=== PATIENT | male | born 1965 | race African-American/Black ===

== ENCOUNTER 2018-08-19 22:51 | Inpatient (IN) ==
[2018-08-19 23:29] LABS: Baso % (Auto) 0.5 % (0.0-2.0); Eos % (Auto) 0.2 % (0.0-4.0); Lymph # (Auto) 3.4 th/mm3 (1.0-4.8); Lymph % (Auto) 36.8 % (9.0-44.0); Mean Corpuscular HGB Conc 31.9 % (32.0-36.0); Mean Corpuscular Hemoglobin 28.6 pg (27.0-34.0); Mean Corpuscular Volume 89.6 fL (80.0-100.0); Mean Platelet Volume 8.1 fL (7.0-11.0); Mono % (Auto) 10.8 % (0.0-8.0); Neut # (Auto) 4.8 th/mm3 (1.8-7.7); Neut % (Auto) 51.7 % (16.0-70.0); Platelet Count 303 th/mm3 (150-450); Red Blood Count 4.91 mil/mm3 (4.50-5.90); Red Cell Distribution Width 13.7 % (11.6-17.2); White Blood Count 9.2 th/mm3 (4.0-11.0)
[2018-08-19 23:38] LABS: Activated Partial Thrombo Time 24.4 sec (24.3-30.1); Prothrombin Time 10.5 sec (9.8-11.6)
--- NOTE | 2018-08-19 23:42 | XR ---
EXAM DATE: 08/19/2018 11:13 PM EDT AGE/SEX: 52 years / Male INDICATIONS: Cough. CLINICAL DATA: This is the patient's initial encounter. Patient reports that signs and symptoms have been present for 1 day and indicates a pain score of 0/10. MEDICAL/SURGICAL HISTORY: None. None. COMPARISON: No prior exams available for comparison. FINDINGS: The heart size is normal. There is some questionable minimal increased density at the medial right ba se. The left lung appears clear. No effusion is seen. CONCLUSION: Possible minimal consolidation or atelectasis at the medial right base. Electronically signed by: Yuriy Negro MD 08/19/2018 11:40 PM EDT
[2018-08-19 23:54] LABS: Alanine Aminotransferase 37 U/L (12-78); Albumin 4.2 g/dL (3.4-5.0); Anion Gap 24 meq/L (5-15); Aspartate Aminotransferase 27 U/L (15-37); Blood Urea Nitrogen 8 mg/dL (7-18); Calcium 8.8 mg/dL (8.5-10.1); Carbon Dioxide 14.5 meq/L (21.0-32.0); Chloride 102 meq/L (98-107); Glomerular Filtration Rate 47 mL/min (>89); Glucose,Random 234 mg/dL (74-106); Potassium 3.1 meq/L (3.5-5.1); Sodium 140 meq/L (136-145)
[2018-08-20 00:02] LABS: Alkaline Phosphatase 80 U/L (45-117); Creatine Kinase 239 U/L (39-308); Total Protein 8.7 g/dL (6.4-8.2); Troponin I 0.02 ng/mL (0.02-0.05)
--- NOTE | 2018-08-20 00:19 | CT ---
EXAM DATE: 08/19/2018 11:16 PM EDT AGE/SEX: 52 years / Male INDICATIONS: Possible overdose. Altered mental status. CLINICAL DATA: This is the patient's initial encounter. Patient reports that signs and symptoms have been present for 1 day and indicates a pain score of 0/10. MEDICAL/SURGICAL HISTORY: . Unobtainable. . Unobtainable. RADIATION DOSE: 40.57 CTDI (mGy) COMPARISON: No prior exams available for comparison. TECHNIQUE: CT of the head without contrast. Using automated exposure control and adjustment of the mA and/or kV according to patient size, radiation dose was kept as low as reasonably achievable to ob tain optimal diagnostic quality images. DICOM format image data is available electronically for revi ew and comparison. FINDINGS: Cerebrum: The ventricles are normal for age. No evidence of midline shift, mass lesion, hemorrhage or acute infarction. No extraaxial fluid collections are seen. Posterior Fossa: The cerebellum and brainstem are intact. The 4th ventricle is midline. The cerebe llopontine angle is unremarkable. Extracranial: The visualized portion of the orbits is intact. Skull: The calvaria is intact. No evidence of skull fracture. CONCLUSION: Negative noncontrast head CT. . Electronically signed by: Yuriy Negro MD 08/20/2018 12:18 AM EDT
--- NOTE | 2018-08-20 01:30 | ED ---
HPI General Chief Complaint: Medical Clearance Stated Complaint: Medical Clearance Time Seen by Provider: 08/19/18 23:12 Source: family (Sister) Mode of arrival: wheelchair Limitations: altered mental status History of Present Illness HPI narrative: 32-year-old male came to the emergency room with history of altered mental status as described by his sister. She is giving the history since patient is not capable of giving any history with his mental status. She says that she last saw him normal at 5 PM. Then about an hour ago she found him very combative, screaming and agitated. He was diaphoretic and was not making much sense. She was concerned that he had done drugs which was causing this since patient has history of polysubstance abuse. She thinks he mostly smokes crack cocaine but will smoke anything. Patient was tachycardic. He seemed to be responding to the commands when his sister spoke to him but nonverbal. He did seem like he was having visual hallucinations. As per the sister he is not on any medications. From what I understand she says has TBI. complaint: Reports altered mental status Onset (ago): unknown Timing confirmed by: family member Severity: severe Consistency of symptoms: getting worse Context: Reports drug abuse Related Data Home Medications Medication Instructions Recorded Confirmed Unable to Obtain Home Meds 08/19/18 08/19/18 Allergies Allergy/AdvReac Type Severity Reaction Status Date / Time No Known Allergies AdvReac Unknown Uncoded 01/24/18 10:46 Review of Systems ROS Unobtainable ROS Unobtainable: unobtainable due to mental condition and unobtainable due to mental status [facility] Medical History Medical History Medical history unknown (Acute) Social History Social History Substance History: Active Abuse Smoking Status: Current every day smoker Tobacco Type: Cigarettes How Often Do You Have a Drink Containing Alcohol: Never Recent Travel in [facility] within the Last 8 Weeks: No Recent Out of Country Travel within the Last 8 Weeks: No Substance Abuse Detail Crack/Cocaine: Substance Use Status: Active Route Used Substance Abuse: Inhalation Immunization History Tetanus Immunization: Unsure Exam Narrative Exam Narrative: GENERAL: Altered mental status, nonverbal, agitated SKIN: Pale and diaphoretic HEAD: Atraumatic. Normocephalic. EYES: Pupils equal and round. No scleral icterus. No injection or drainage. ENT: No nasal bleeding or discharge. Mucous membranes pink and moist. NECK: Trachea midline. No JVD. CARDIOVASCULAR: Regular rate and rhythm. Tachycardia. No murmur appreciated. RESPIRATORY: No accessory muscle use. Clear to auscultation. Breath sounds equal bilaterally. GASTROINTESTINAL: Abdomen soft, non-tender, nondistended. Hepatic and splenic margins not palpable. MUSCULOSKELETAL: No obvious deformities. No clubbing. No cyanosis. No edema. NEUROLOGICAL: GCS of 10 PSYCHIATRIC: Agitated, poor insight and judgment Course Initial Documented Vital Signs Temperature 98.3 F 08/19/18 23:08 Pulse Rate 115 H 08/19/18 23:08 Respiratory Rate 20 08/19/18 23:08 Blood Pressure 153/87 H 08/19/18 23:08 Pulse Oximetry 100 08/19/18 23:08 Last Documented Vital Signs Temperature 98.3 F 08/19/18 23:08 Pulse Rate 84 08/20/18 01:34 Respiratory Rate 20 08/20/18 01:34 Blood Pressure 150/74 H 08/20/18 01:34 Pulse Oximetry 98 08/20/18 01:34 Medical Decision Making MDM Narrative Medical decision making narrative: 1:39 AM patient was given 2 mg of Ativan which seemed to calm him down. This has brought his heart rate down and the diaphoresis has improved. Blood test results are back and within acceptable limit. Head CT and chest x-ray are negative as read by the radiologist. Patient was given a liter of IV fluid bolus. He just gave a urine sample and I am awaiting for the drug screen. In my opinion this is toxicology related. I will observe the patient until the morning and he will be discharged once he is sober. A repeat EKG and troponin will be obtained in 3-4 hours from the first 1. 2:30 AM repeat troponin was abnormally high. I decided to admit the patient. He was given 4 baby aspirins. Urine drug screen is positive for cocaine and cannabis. The non-STEMI is most probably related to cocaine. Medical Screen Exam Complete: Yes Emergency Medical Condition: Yes Lab Data Result diagrams: 08/19/18 23:20 08/19/18 23:20 Lab Results 08/19/18 08/19/18 08/19/18 Range/Units 23:20 23:20 23:20 WBC 9.2 (4.0-11.0) th/mm3 RBC 4.91 (4.50-5.90) mil/mm3 Hgb 14.0 (13.0-17.0) gm/dL Hct 44.0 (39.0-51.0) % MCV 89.6 (80.0-100.0) fL MCH 28.6 (27.0-34.0) pg MCHC 31.9 L (32.0-36.0) % RDW 13.7 (11.6-17.2) % Plt Count 303 (150-450) th/mm3 MPV 8.1 (7.0-11.0) fL Neut % (Auto) 51.7 (16.0-70.0) % Lymph % (Auto) 36.8 (9.0-44.0) % [place] % (Auto) 10.8 H (0.0-8.0) % Eos % (Auto) 0.2 (0.0-4.0) % Baso % (Auto) 0.5 (0.0-2.0) % Neut # (Auto) 4.8 (1.8-7.7) th/mm3 Lymph # (Auto) 3.4 (1.0-4.8) th/mm3 [place] # (Auto) 1.0 H (0.0-0.9) th/mm3 Eos # (Auto) 0.0 (0.0-0.4) th/mm3 Baso # (Auto) 0.0 (0.0-0.2) th/mm3 WBC Differential . Differential Comment Auto diff final PT 10.5 (9.8-11.6) sec INR 1.0 Ratio APTT 24.4 (24.3-30.1) sec Sodium 140 (136-145) meq/L Potassium 3.1 L (3.5-5.1) meq/L Chloride 102 (98-107) meq/L Carbon Dioxide 14.5 L (21.0-32.0) meq/L Anion Gap 24 H (5-15) meq/L BUN 8 (7-18) mg/dL Creatinine 1.84 H (0.60-1.30) mg/dL Estimated GFR 47 L (>89) mL/min Random Glucose 234 H (74-106) mg/dL Calcium 8.8 (8.5-10.1) mg/dL Magnesium 2.0 (1.5-2.5) mg/dL Total Bilirubin 0.3 (0.2-1.0) mg/dL AST 27 (15-37) U/L ALT 37 (12-78) U/L Alkaline Phosphatase 80 (45-117) U/L Ammonia (11-32) mcmol/L Total Creatine Kinase 239 (39-308) U/L Troponin I 0.02 (0.02-0.05) ng/mL Total Protein 8.7 H (6.4-8.2) g/dL Albumin 4.2 (3.4-5.0) g/dL TSH 3.340 (0.358-3.740) uIU/mL Urine Color (Yellw/Straw) Urine Clarity (Clear) Urine pH (5.0-8.5) Ur Specific [place] (1.002-1.035) Urine Protein (Neg-Trace) mg/dL Urine Glucose (UA) (Negative) mg/dL Urine Ketones (Negative) mg/dL Urine Occult Blood (Negative) Urine Nitrate (Negative) Urine Bilirubin (Negative) Urine Urobilinogen (Less than 2) mg/dL Ur Leukocyte Esterase (Negative) Urine RBC (0-3) /hpf Urine WBC (0-5) /hpf Hyaline Casts (0-3) /lpf Urine Mucus (Occasional) /lpf Micro UA Comment Ur Microscopic Review Urine Culture Comments Urine Opiates Screen (Neg) Ur Barbiturates Screen (Neg) Ur Amphetamines Screen (Neg) U Benzodiazepines Scrn (Neg) Urine Cocaine Screen (Neg) U Cannabinoids Screen (Neg) Serum Alcohol Less than 3 (0-5) mg/dL 08/19/18 08/20/18 08/20/18 Range/Units 23:20 01:15 01:15 WBC (4.0-11.0) th/mm3 RBC (4.50-5.90) mil/mm3 Hgb (13.0-17.0) gm/dL Hct (39.0-51.0) % MCV (80.0-100.0) fL MCH (27.0-34.0) pg MCHC (32.0-36.0) % RDW (11.6-17.2) % Plt Count (150-450) th/mm3 MPV (7.0-11.0) fL Neut % (Auto) (16.0-70.0) % Lymph % (Auto) (9.0-44.0) % [place] % (Auto) (0.0-8.0) % Eos % (Auto) (0.0-4.0) % Baso % (Auto) (0.0-2.0) % Neut # (Auto) (1.8-7.7) th/mm3 Lymph # (Auto) (1.0-4.8) th/mm3 [place] # (Auto) (0.0-0.9) th/mm3 Eos # (Auto) (0.0-0.4) th/mm3 Baso # (Auto) (0.0-0.2) th/mm3 WBC Differential Differential Comment PT (9.8-11.6) sec INR Ratio APTT (24.3-30.1) sec Sodium (136-145) meq/L Potassium (3.5-5.1) meq/L Chloride (98-107) meq/L Carbon Dioxide (21.0-32.0) meq/L Anion Gap (5-15) meq/L BUN (7-18) mg/dL Creatinine (0.60-1.30) mg/dL Estimated GFR (>89) mL/min Random Glucose (74-106) mg/dL Calcium (8.5-10.1) mg/dL Magnesium (1.5-2.5) mg/dL Total Bilirubin (0.2-1.0) mg/dL AST (15-37) U/L ALT (12-78) U/L Alkaline Phosphatase (45-117) U/L Ammonia 119 H (11-32) mcmol/L Total Creatine Kinase (39-308) U/L Troponin I (0.02-0.05) ng/mL Total Protein (6.4-8.2) g/dL Albumin (3.4-5.0) g/dL TSH (0.358-3.740) uIU/mL Urine Color Yellow (Yellw/Straw) Urine Clarity Hazy H (Clear) Urine pH 5.0 (5.0-8.5) Ur Specific [place] 1.017 (1.002-1.035) Urine Protein 100 H (Neg-Trace) mg/dL Urine Glucose (UA) Negative (Negative) mg/dL Urine Ketones Negative (Negative) mg/dL Urine Occult Blood Small H (Negative) Urine Nitrate Negative (Negative) Urine Bilirubin Negative (Negative) Urine Urobilinogen Less than 2 (Less than 2) mg/dL Ur Leukocyte Esterase Negative (Negative) Urine RBC 1 (0-3) /hpf Urine WBC 3 (0-5) /hpf Hyaline Casts 19 (0-3) /lpf Urine Mucus Few H (Occasional) /lpf Micro UA Comment Culture not ind Ur Microscopic Review Not Reportable Urine Culture Comments Culture not ind Urine Opiates Screen Neg (Neg) Ur Barbiturates Screen Neg (Neg) Ur Amphetamines Screen Neg (Neg) U Benzodiazepines Scrn Neg (Neg) Urine Cocaine Screen Pos H (Neg) U Cannabinoids Screen Pos H (Neg) Serum Alcohol (0-5) mg/dL 08/20/18 Range/Units 02:00 WBC (4.0-11.0) th/mm3 RBC (4.50-5.90) mil/mm3 Hgb (13.0-17.0) gm/dL Hct (39.0-51.0) % MCV (80.0-100.0) fL MCH (27.0-34.0) pg MCHC (32.0-36.0) % RDW (11.6-17.2) % Plt Count (150-450) th/mm3 MPV (7.0-11.0) fL Neut % (Auto) (16.0-70.0) % Lymph % (Auto) (9.0-44.0) % [place] % (Auto) (0.0-8.0) % Eos % (Auto) (0.0-4.0) % Baso % (Auto) (0.0-2.0) % Neut # (Auto) (1.8-7.7) th/mm3 Lymph # (Auto) (1.0-4.8) th/mm3 [place] # (Auto) (0.0-0.9) th/mm3 Eos # (Auto) (0.0-0.4) th/mm3 Baso # (Auto) (0.0-0.2) th/mm3 WBC Differential Differential Comment PT (9.8-11.6) sec INR Ratio APTT (24.3-30.1) sec Sodium (136-145) meq/L Potassium (3.5-5.1) meq/L Chloride (98-107) meq/L Carbon Dioxide (21.0-32.0) meq/L Anion Gap (5-15) meq/L BUN (7-18) mg/dL Creatinine (0.60-1.30) mg/dL Estimated GFR (>89) mL/min Random Glucose (74-106) mg/dL Calcium (8.5-10.1) mg/dL Magnesium (1.5-2.5) mg/dL Total Bilirubin (0.2-1.0) mg/dL AST (15-37) U/L ALT (12-78) U/L Alkaline Phosphatase (45-117) U/L Ammonia (11-32) mcmol/L Total Creatine Kinase (39-308) U/L Troponin I 0.08 H (0.02-0.05) ng/mL Total Protein (6.4-8.2) g/dL Albumin (3.4-5.0) g/dL TSH (0.358-3.740) uIU/mL Urine Color (Yellw/Straw) Urine Clarity (Clear) Urine pH (5.0-8.5) Ur Specific [place] (1.002-1.035) Urine Protein (Neg-Trace) mg/dL Urine Glucose (UA) (Negative) mg/dL Urine Ketones (Negative) mg/dL Urine Occult Blood (Negative) Urine Nitrate (Negative) Urine Bilirubin (Negative) Urine Urobilinogen (Less than 2) mg/dL Ur Leukocyte Esterase (Negative) Urine RBC (0-3) /hpf Urine WBC (0-5) /hpf Hyaline Casts (0-3) /lpf Urine Mucus (Occasional) /lpf Micro UA Comment Ur Microscopic Review Urine Culture Comments Urine Opiates Screen (Neg) Ur Barbiturates Screen (Neg) Ur Amphetamines Screen (Neg) U Benzodiazepines Scrn (Neg) Urine Cocaine Screen (Neg) U Cannabinoids Screen (Neg) Serum Alcohol (0-5) mg/dL Imaging Data Radiologist's impression: Chest X-Ray 08/19/18 23:13 CONCLUSION: Possible minimal consolidation or atelectasis at the medial right base. Head CT 08/19/18 23:13 CONCLUSION: Negative noncontrast head CT. . ECG Data Attestation: I personally reviewed and interpreted this ECG as follows: Interpretation: Twelve-lead EKG was reviewed by me. Normal sinus rhythm, normal axis, tachycardia, LV strain, PVCs. Heart rate of 116 bpm. Discharge Plan Physicians Team ED Provider: Yanira Armijo Primary Care Provider: UNKNOWN, Rxs /Orders / Referrals /Forms Prescriptions: No Action Unable to Obtain Home Meds RF: 0 Status ED Status: With Doctor
[2018-08-20 01:54] LABS: Bilirubin,Urine Negative (Negative); Clarity,Urine Hazy (Clear); Color,Urine Yellow (Yellw/Straw); Glucose,Urine (UA) Negative (Negative); Hyaline Casts,Urine 19 /lpf (0-3); Leukocyte Esterase,Urine Negative (Negative); Mucus,Urine Few /lpf (Occasional); Nitrite,Urine Negative (Negative); Specific Gravity,Urine 1.017 (1.002-1.035)
[2018-08-20 02:30] LABS: Amphetamine Screen,Urine Neg (Neg); Barbiturate Screen,Urine Neg (Neg); Cannabinoid Screen,Urine Pos (Neg); Cocaine Screen,Urine Pos (Neg)
[2018-08-20 02:31] LABS: Opiate Screen,Urine Neg (Neg)
[2018-08-20] MEDS ORDERED: Acetaminophen 325 MG Tablet PO PRN (02:55)
[2018-08-20] MEDS: Heparin - SQ 10,000 UNITS/ML Vial SQ SCH ×3 (03:17→18:17)
[2018-08-20] MEDS: Sod Chloride 0.9% Inj 1,000 ML IV.CONT SCH ×4 (03:17→18:17)
[2018-08-20] MEDS ORDERED: Potassium Chlor 20 mEq Premix 20 MEQ/100 ML PIGGYBACK IV.SIG ONE (03:19)
--- NOTE | 2018-08-20 03:28 | P.HP ---
History of Present Illness Service: [facility] Primary Care Physician: UNKNOWN History of Present Illness: 52-year-old male with a past medical history significant for hypertension presents to the emergency department for evaluation of altered mental status as described by his sister. The patient is a poor historian who cannot tell me why he came to the ED. He admits to smoking cocaine this evening. According to ED documentation, his sister brought him to the emergency department after finding him combative, agitated and screaming. He was diaphoretic and not making sense. He was having visual hallucinations on arrival to the ED. He is not on any medications. He currently denies any chest pain or shortness of breath. No abdominal pain. No nausea/vomiting/diarrhea. No fever/chills. No lateralizing signs/symptoms. Per ED documentation, the patient has a history of a TBI. Review of Systems All other systems reviewed negative except as stated in HPI [facility] - History History Provided By: Family Member - Medical History Medical History: Medical History (Last Updated 08/20/18 @ 03:22 by Khadra Watt MD) Hypertension Traumatic brain injury - Surgical History Surgical History: Surgical History (Last Updated 08/20/18 @ 03:22 by Khadra Watt MD) No history of previous surgery - Family History Family History: Family History (Last Updated 08/20/18 @ 03:22 by Khadra Watt MD) Other Family history normal - Tobacco History Tobacco Use In Past 30 Days: Yes Smoking Status: Current every day smoker Tobacco Type: Cigarettes - Alcohol History How Often Do You Have a Drink Containing Alcohol: Never - Substance Use History Substance History: Active Abuse - Substance Use Type Crack/Cocaine Status: Active Route Used: Inhalation - Travel History Recent Travel in the [facility] Within the Last 8 Weeks: No Recent Travel Out of the Country Within the Last 8 Weeks: No - Immunization History Tetanus Immunization: Unsure Medications and Allergies Active Medications: Active Medications Acetaminophen (Tylenol) 650 mg PO Q4H PRN PRN Reason: Temp > 100.4 Heparin Sodium (Porcine) (Heparin Inj) 5,000 units SQ Q8H [facility] Last Admin: 08/20/18 03:17 Dose: 5,000 units Sodium Chloride (Ns Inj) 1,000 mls @ 100 mls/hr IV.CONT .Q10H [facility] Last Admin: 08/20/18 03:17 Dose: 100 mls/hr Ondansetron HCl (Zofran Inj) 4 mg IV.PUSH Q6H PRN PRN Reason: NAUSEA OR VOMITING Sodium Chloride (Ns Flush) 2 ml IV.FLUSH PRN PRN PRN Reason: FLUSH AFTER USING IV ACCESS Allergies Allergy/AdvReac Type Severity Reaction Status Date / Time No Known Allergies AdvReac Unknown Uncoded 01/24/18 10:46 Home Medications Medication Instructions Recorded Confirmed Type Unable to Obtain Home Meds 08/19/18 08/19/18 History Exam Vital signs: Vital Signs 08/19/18 23:08 08/19/18 23:11 08/19/18 23:28 Temperature 98.3 F Pulse Rate 115 H 90 Respiratory Rate 20 18 Blood Pressure 153/87 H 147/75 H Pulse Oximetry 100 98 100 08/19/18 23:45 08/20/18 01:34 Temperature Pulse Rate 110 H 84 Respiratory Rate 20 Blood Pressure 150/74 H Pulse Oximetry 98 Intake & Output 08/19/18 08/19/18 08/20/18 06:59 18:59 06:59 Weight 81.647 kg Narrative: Gen.: No acute distress Head: Normocephalic. Atraumatic. EENT: Pupils equal round and reactive to light. Nose without drainage. Airway intact. Throat without injection. Cardiovascular: Regular rate and rhythm. No murmurs, rubs or gallops. Respiratory: Lungs clear to auscultation bilaterally. No wheezes or rhonchi. Abdomen: Soft, nontender, nondistended. No peritoneal signs. Musculoskeletal: No gross deformities. No edema. Skin: No obvious rashes or erythema. Neuro: Sensory and motor grossly intact. Cranial nerves II through XII grossly intact. Results - Labs CBC & Chem 7: 08/19/18 23:20 08/19/18 23:20 Labs: Laboratory Results - last 24 hr 08/19/18 08/19/18 08/19/18 23:20 23:20 23:20 WBC 9.2 RBC 4.91 Hgb 14.0 Hct 44.0 MCV 89.6 MCH 28.6 MCHC 31.9 L RDW 13.7 Plt Count 303 MPV 8.1 Neut % (Auto) 51.7 Lymph % (Auto) 36.8 [place] % (Auto) 10.8 H Eos % (Auto) 0.2 Baso % (Auto) 0.5 Neut # (Auto) 4.8 Lymph # (Auto) 3.4 [place] # (Auto) 1.0 H Eos # (Auto) 0.0 Baso # (Auto) 0.0 WBC Differential . Differential Comment Auto diff final PT 10.5 INR 1.0 APTT 24.4 Sodium 140 Potassium 3.1 L Chloride 102 Carbon Dioxide 14.5 L Anion Gap 24 H BUN 8 Creatinine 1.84 H Estimated GFR 47 L Random Glucose 234 H Calcium 8.8 Magnesium 2.0 Total Bilirubin 0.3 AST 27 ALT 37 Alkaline Phosphatase 80 Ammonia Total Creatine Kinase 239 Troponin I 0.02 Total Protein 8.7 H Albumin 4.2 TSH 3.340 Urine Color Urine Clarity Urine pH Ur Specific [place] Urine Protein Urine Glucose (UA) Urine Ketones Urine Occult Blood Urine Nitrate Urine Bilirubin Urine Urobilinogen Ur Leukocyte Esterase Urine RBC Urine WBC Hyaline Casts Urine Mucus Micro UA Comment Ur Microscopic Review Urine Culture Comments Urine Opiates Screen Ur Barbiturates Screen Ur Amphetamines Screen U Benzodiazepines Scrn Urine Cocaine Screen U Cannabinoids Screen Serum Alcohol Less than 3 08/19/18 08/20/18 08/20/18 23:20 01:15 01:15 WBC RBC Hgb Hct MCV MCH MCHC RDW Plt Count MPV Neut % (Auto) Lymph % (Auto) [place] % (Auto) Eos % (Auto) Baso % (Auto) Neut # (Auto) Lymph # (Auto) [place] # (Auto) Eos # (Auto) Baso # (Auto) WBC Differential Differential Comment PT INR APTT Sodium Potassium Chloride Carbon Dioxide Anion Gap BUN Creatinine Estimated GFR Random Glucose Calcium Magnesium Total Bilirubin AST ALT Alkaline Phosphatase Ammonia 119 H Total Creatine Kinase Troponin I Total Protein Albumin TSH Urine Color Yellow Urine Clarity Hazy H Urine pH 5.0 Ur Specific [place] 1.017 Urine Protein 100 H Urine Glucose (UA) Negative Urine Ketones Negative Urine Occult Blood Small H Urine Nitrate Negative Urine Bilirubin Negative Urine Urobilinogen Less than 2 Ur Leukocyte Esterase Negative Urine RBC 1 Urine WBC 3 Hyaline Casts 19 Urine Mucus Few H Micro UA Comment Culture not ind Ur Microscopic Review Not Reportable Urine Culture Comments Culture not ind Urine Opiates Screen Neg Ur Barbiturates Screen Neg Ur Amphetamines Screen Neg U Benzodiazepines Scrn Neg Urine Cocaine Screen Pos H U Cannabinoids Screen Pos H Serum Alcohol 08/20/18 02:00 WBC RBC Hgb Hct MCV MCH MCHC RDW Plt Count MPV Neut % (Auto) Lymph % (Auto) [place] % (Auto) Eos % (Auto) Baso % (Auto) Neut # (Auto) Lymph # (Auto) [place] # (Auto) Eos # (Auto) Baso # (Auto) WBC Differential Differential Comment PT INR APTT Sodium Potassium Chloride Carbon Dioxide Anion Gap BUN Creatinine Estimated GFR Random Glucose Calcium Magnesium Total Bilirubin AST ALT Alkaline Phosphatase Ammonia Total Creatine Kinase Troponin I 0.08 H Total Protein Albumin TSH Urine Color Urine Clarity Urine pH Ur Specific [place] Urine Protein Urine Glucose (UA) Urine Ketones Urine Occult Blood Urine Nitrate Urine Bilirubin Urine Urobilinogen Ur Leukocyte Esterase Urine RBC Urine WBC Hyaline Casts Urine Mucus Micro UA Comment Ur Microscopic Review Urine Culture Comments Urine Opiates Screen Ur Barbiturates Screen Ur Amphetamines Screen U Benzodiazepines Scrn Urine Cocaine Screen U Cannabinoids Screen Serum Alcohol - Imaging Impressions Chest X-Ray 08/19/18 23:13 CONCLUSION: Possible minimal consolidation or atelectasis at the medial right base. Head CT 08/19/18 23:13 CONCLUSION: Negative noncontrast head CT. . Caprini VTE Risk Assessment Caprini VTE Risk Assessment: No/Low Risk (score <= 1) Caprini Risk Assessment Model: Point Value = 1 Point Value = 2 Point Value = 3 Point Value = 5 Age 41-60 Minor surgery BMI > 25 kg/m2 Swollen legs Varicose veins or History of unexplained or recurrent spontaneous Oral contraceptives or hormone replacement Sepsis (< 1 month) Serious lung disease, including pneumonia (< 1 month) Abnormal pulmonary function Acute myocardial infarction Congestive heart failure (< 1 month) History of inflammatory bowel disease Medical patient at bed rest Age 61-74 Arthroscopic surgery Major open surgery (> 45 min) Laparoscopic surgery (> 45 min) Malignancy Confined to bed (> 72 hours) Immobilizing plaster cast Central venous access Age >= 75 History of VTE Family history of VTE Factor V Leiden Prothrombin [id number] Lupus anticoagulant Anticardiolipin antibodies Elevated serum homocysteine Heparin-induced thrombocytopenia Other congenital or acquired thrombophilia Stroke (< 1 month) Elective arthroplasty Hip, pelvis, or leg fracture Acute spinal cord injury (< 1 month) Prophylaxis Regimen: Total Risk Factor Score Risk Level Prophylaxis Regimen 0-1 Low Early ambulation 2 Moderate Order ONE of the following: *Sequential Compression Device (SCD) *Heparin 5000 units SQ BID 3-4 Higher Order ONE of the following medications: *Heparin 5000 units SQ TID *Enoxaparin/Lovenox 40 mg SQ daily (WT < 150 kg, CrCl > 30 mL/min) *Enoxaparin/Lovenox 30 mg SQ daily (WT < 150 kg, CrCl > 10-29 mL/min) *Enoxaparin/Lovenox 30 mg SQ BID (WT < 150 kg, CrCl > 30 mL/min) AND/OR *Sequential Compression Device (SCD) 5 or more Highest Order ONE of the following medications: *Heparin 5000 units SQ TID (Preferred with Epidurals) *Enoxaparin/Lovenox 40 mg SQ daily (WT < 150 kg, CrCl > 30 mL/min) *Enoxaparin/Lovenox 30 mg SQ daily (WT < 150 kg, CrCl > 10-29 mL/min) *Enoxaparin/Lovenox 30 mg SQ BID (WT < 150 kg, CrCl > 30 mL/min) AND *Sequential Compression Device (SCD) Assessment and Plan - Plan Assessment/plan: 1. Altered mental status Patient agitated and combative Likely secondary to cocaine ingestion Resolved 2. Elevated troponin Initial troponin normal, repeat 0.08 EKG without signs of ischemia, personally reviewed Likely secondary to cocaine Repeat troponin, EKG ordered 3. Hypertension She is not on any home medications Clonidine as needed Monitor 4. Hypokalemia Status post p.o./IV repletion Monitor BMP 5. AK I Creatinine 1.84, no recent baseline for comparison IV fluid hydration Monitor renal function FEN N.p.o. NS at 100 cc/hour Electrolytes: As above Heparin
[2018-08-20 10:28] LABS: Troponin I 0.09 ng/mL (0.02-0.05)
[2018-08-20] MEDS: amLODIPine 10 MG Tablet PO SCH (18:44)
[2018-08-21] MEDS: Sod Chloride 0.9% Inj 1,000 ML IV.CONT SCH ×2 (03:57→08:01)
[2018-08-21] MEDS: Heparin - SQ 10,000 UNITS/ML Vial SQ SCH ×3 (03:59→18:20)
[2018-08-21] MEDS: amLODIPine 10 MG Tablet PO SCH (08:01)
[2018-08-21 08:27] VITALS: RESP 20
[2018-08-21 10:55] LABS: Baso % (Auto) 0.4 % (0.0-2.0); Eos % (Auto) 0.7 % (0.0-4.0); Hematocrit 42.4 % (39.0-51.0); Hemoglobin 13.9 gm/dL (13.0-17.0); Lymph # (Auto) 1.7 th/mm3 (1.0-4.8); Lymph % (Auto) 27.9 % (9.0-44.0); Mean Corpuscular HGB Conc 32.8 % (32.0-36.0); Mean Corpuscular Hemoglobin 28.7 pg (27.0-34.0); Mean Corpuscular Volume 87.5 fL (80.0-100.0); Mean Platelet Volume 8.3 fL (7.0-11.0); Mono # (Auto) 0.6 th/mm3 (0.0-0.9); Mono % (Auto) 9.9 % (0.0-8.0); Neut # (Auto) 3.7 th/mm3 (1.8-7.7); Neut % (Auto) 61.1 % (16.0-70.0); Platelet Count 265 th/mm3 (150-450); Red Blood Count 4.85 mil/mm3 (4.50-5.90); Red Cell Distribution Width 13.4 % (11.6-17.2)
[2018-08-21 11:25] LABS: Albumin 3.3 g/dL (3.4-5.0); Anion Gap 8 meq/L (5-15); Aspartate Aminotransferase 35 U/L (15-37); Blood Urea Nitrogen 6 mg/dL (7-18); Calcium 8.1 mg/dL (8.5-10.1); Carbon Dioxide 24.4 meq/L (21.0-32.0); Chloride 106 meq/L (98-107); Glomerular Filtration Rate Greater Than 89 mL/min (>89); Glucose,Random 74 mg/dL (74-106); Magnesium 2.1 mg/dL (1.5-2.5); Potassium 3.8 meq/L (3.5-5.1); Sodium 138 meq/L (136-145)
[2018-08-21 11:27] LABS: Alanine Aminotransferase 38 U/L (12-78); Alkaline Phosphatase 66 U/L (45-117); Total Protein 7.2 g/dL (6.4-8.2); Troponin I 0.02 ng/mL (0.02-0.05)
--- NOTE | 2018-08-21 11:47 | P.PN ---
Subjective Interval history: She doing well overnight. Patient is tolerating p.o., voiding/stooling well. Patient denies chest pain. No concerns. Physical Exam Vital signs: Vital Signs 08/20/18 12:00 08/20/18 13:59 08/20/18 16:00 Temperature 98.2 F 98 F Pulse Rate 69 73 68 Respiratory Rate 20 20 Blood Pressure 151/57 H 183/94 H Pulse Oximetry 100 98 08/20/18 20:00 08/21/18 00:00 08/21/18 04:00 Temperature 98.5 F 98.0 F 98.4 F Pulse Rate 69 70 57 L Respiratory Rate 18 20 17 Blood Pressure 156/73 H 152/73 H 168/69 H Pulse Oximetry 100 100 99 08/21/18 07:00 08/21/18 07:16 08/21/18 08:00 Temperature 98.6 F Pulse Rate 55 L Respiratory Rate 12 12 20 Blood Pressure 164/85 H Pulse Oximetry 100 08/21/18 09:00 Temperature Pulse Rate 74 Respiratory Rate Blood Pressure Pulse Oximetry Intake & Output 08/20/18 08/21/18 08/21/18 18:59 06:59 18:59 Intake Total 2240 / 2240 1000 / 1000 Output Total 700 / 700 1200 / 1200 500 / 500 Balance 1540 / 1540 -200 / -200 -500 / -500 Weight 65.8 kg Intake: IV 2000 / 1999 1000 / 1000 NS Inj 1,000 ML @ 100 mls/hr IV 2000 / 2000 1000 / 1000 .CONT .Q10H AMIRAH Rx#:[id number] Oral 240 / 240 Output: Urine 700 / 700 1200 / 1200 500 / 500 Other: # Voids 3 Date of Last Bowel Movement 08/19/18 08/19/18 Narrative: GENERAL: Well-nourished -Nepalese male, no acute distress, sitting up in bed. SKIN: Warm and dry. Well-healed abrasion on left lower extremity. HEENT: Normocephalic. No scleral icterus. No injection or drainage. PERRLA, MOM. NECK: Supple, trachea midline. No JVD or lymphadenopathy. CARDIOVASCULAR: Regular rate and rhythm without murmurs, gallops, or rubs. RESPIRATORY: Breath sounds equal bilaterally. No accessory muscle use. GASTROINTESTINAL: Abdomen soft, non-tender, nondistended. MUSCULOSKELETAL: No cyanosis, or edema. BACK: Nontender without obvious deformity. No CVA tenderness. NEURO: AAO x3, no focal deficits, motor strength 5/5 x 4. Results - Labs CBC & Chem 7: 08/21/18 09:25 08/21/18 09:25 Laboratory Results - last 24 hr 08/20/18 08/20/18 08/20/18 13:27 13:27 22:14 WBC RBC Hgb Hct MCV MCH MCHC RDW Plt Count MPV Neut % (Auto) Lymph % (Auto) [place] % (Auto) Eos % (Auto) Baso % (Auto) Neut # (Auto) Lymph # (Auto) [place] # (Auto) Eos # (Auto) Baso # (Auto) WBC Differential Differential Comment Sodium Potassium Chloride Carbon Dioxide Anion Gap BUN Creatinine Estimated GFR Random Glucose Calcium Magnesium Total Bilirubin AST ALT Alkaline Phosphatase Ammonia 21 Troponin I 0.07 H 0.05 Total Protein Albumin 08/21/18 08/21/18 09:25 09:25 WBC 6.0 RBC 4.85 Hgb 13.9 Hct 42.4 MCV 87.5 MCH 28.7 MCHC 32.8 RDW 13.4 Plt Count 265 MPV 8.3 Neut % (Auto) 61.1 Lymph % (Auto) 27.9 [place] % (Auto) 9.9 H Eos % (Auto) 0.7 Baso % (Auto) 0.4 Neut # (Auto) 3.7 Lymph # (Auto) 1.7 [place] # (Auto) 0.6 Eos # (Auto) 0.0 Baso # (Auto) 0.0 WBC Differential . Differential Comment Auto diff final Sodium 138 Potassium 3.8 Chloride 106 Carbon Dioxide 24.4 D Anion Gap 8 BUN 6 L Creatinine 0.98 Estimated GFR Greater than 89 Random Glucose 74 D Calcium 8.1 L Magnesium 2.1 Total Bilirubin 0.4 AST 35 ALT 38 Alkaline Phosphatase 66 Ammonia Troponin I 0.02 Total Protein 7.2 D Albumin 3.3 L D Assessment and Plan - Assessment (1) [place] (acute kidney injury) Code(s): N17.9 - Acute kidney failure, unspecified Status: Acute (2) HTN (hypertension) Code(s): I10 - Essential (primary) hypertension Status: Chronic (3) Elevated troponin Code(s): R74.8 - Abnormal levels of other serum enzymes Status: Acute (4) Cocaine abuse Code(s): F14.10 - Cocaine abuse, uncomplicated Status: Chronic - Plan 52 y/o AAM with PMHx of TBI and HTN admitted for inpatient management of altered mental status, L[place], and elevated troponin, HD#2 1. Altered mental status, resolved Secondary to cocaine ingestion 2. Elevated troponin Initially elevated to 0.09 however has decreased down to 0.05 today Patient asymptomatic Symptoms are due to cocaine ingestion EKG without signs of ischemia, personally reviewed Negative cardiac workup in 2016 due to elevated troponin as well as positive cocaine use 3. Hypertension Not on her meds, started on Norvasc while hospitalized and still uncontrolled Due to history of CHF adding Carvedilol 6.25mg BID, monitor for bradycardia Cont. Clonidine PRN Cont. to monitor 4. CHF, systolic EF 50% per echo in 2016 Will obtain echo to further assess Started carvedilol today for cardio protection 5. Hypokalemia, resolved K 3.8 today Status post p.o./IV repletion 5. [place], resolved Creatinine 0.98 today from 1.84, no recent baseline for comparison s/pIV fluid hydration 6. Cocaine use Advised risk with use Encourage cessation 7. DVT PPX: Heparin 8. Dispo: D/C pending echo results Code Status: full Discussed Condition With: patient, RN
[2018-08-21] MEDS ORDERED: Carvedilol 6.25 MG Tablet PO SCH (13:00)
--- NOTE | 2018-08-21 14:14 | ECHRPT ---
Indication: hypertensive heart disease CONCLUSIONS The left ventricular systolic function is [id number] reduced with an estimated ejection fra ction in the range of 35-40%. Mildly dilated left ventricle. Trace mitral valve regurgitation. BP: / HR: Rhythm: MEASUREMENTS (Male / Female) Normal Values Technical Quality: 2D ECHO LV Diastolic Diameter PLAX 6.0 cm 4.2 - 5.9 / 3.9 - 5.3 cm LV Systolic Diameter PLAX 5.0 cm IVS Diastolic Thickness 1.0 cm 0.6 - 1.0 / 0.6 - 0.9 cm LVPW Diastolic Thickness 0.7 cm 0.6 - 1.0 / 0.6 - 0.9 cm LV Relative Wall Thickness 0.3 RV Internal Dim ED PLAX 1.5 cm LA Systolic Diameter LX 3.3 cm 3.0 - 4.0 / 2.7 - 3.8 cm LV Ejection Fraction MOD BP 40.3 % >= 55 % LV Ejection Fraction MOD 4C 37.8 % LV Ejection Fraction 4C AL 37.9 % LV Ejection Fraction MOD 2C 44.9 % LV Ejection Fraction 2C AL 44.6 % M-MODE AV Cusp Separation MM 2.1 cm DOPPLER Mitral E Point Velocity 74.0 cm/s Mitral A Point Velocity 67.1 cm/s Mitral E to A Ratio 1.1 TR Peak Velocity 236.0 cm/s TR Peak Gradient 22.3 mmHg Right Atrial Pressure 10.0 mmHg Pulmonary Artery Systolic Pressu 32.3 mmHg Right Ventricular Systolic Press 32.3 mmHg FINDINGS LEFT VENTRICLE Mildly dilated left ventricle. Wall thickness is normal. The left ventricular systolic function is xckdgosm-hp-ujeddqz reduced with an estimated ejection fra ction in the range of 35-40%. RIGHT VENTRICLE Normal right ventricular size LEFT ATRIUM The left atrial size is normal. RIGHT ATRIUM The right atrial size is normal. ATRIAL SEPTUM Normal atrial septal thickness AORTA The aortic root and proximal ascending aorta are normal in size on limited imaging. MITRAL VALVE Structurally normal mitral valve. No mitral valve stenosis. Trace mitral valve regurgitation. AORTIC VALVE Trileaflet aortic valve. No aortic valve stenosis or regurgitation. TRICUSPID VALVE Structurally normal tricuspid valve. No tricuspid valve stenosis or regurgitation. PULMONARY VALVE No pulmonary valve regurgitation or stenosis. VESSELS The inferior vena cava is normal in size. PERICARDIUM No pericardial effusion. Keny Rosario DO (Electronically Signed) Final Date:21 August 2018 14:13
[2018-08-21 17:05] LABS: Chol/HDL Ratio 2.85 Ratio; HDL Cholesterol 51.1 mg/dL (40.0-60.0)
[2018-08-21 22:17] LABS: Hemoglobin A1c 5.3 % (4.3-6.0)
--- NOTE | 2018-08-22 01:28 | ECG ---
Date Performed: 08/20/2018 Time Performed: 01:44:19 PTAGE: 52 years EKG: Sinus rhythm LEFT ATRIAL ENLARGEMENT ST DEVIATION AND MODERATE T-WAVE ABNORMALITY, CONSIDER LATERAL ISCHEMIA ABNO RMAL ECG PREVIOUS TRACING : 03/23/2016 09.57 Since the previous tracing, no significant change noted DOCTOR: Keny Rosario Interpretating Date/Time 08/22/2018 01:28:28
--- NOTE | 2018-08-22 01:34 | ECG ---
Date Performed: 08/19/2018 Time Performed: 23:10:22 PTAGE: 52 years EKG: SINUS TACHYCARDIA WITH OCCASIONAL VENTRICULAR PREMATURE COMPLEXES POSSIBLE RIGHT ATRIAL ENL ARGEMENT LEFT ATRIAL ENLARGEMENT POSSIBLE LEFT VENTRICULAR HYPERTROPHY ST DEVIATION AND MODERATE T-WA VE ABNORMALITY, CONSIDER LATERAL ISCHEMIA ABNORMAL ECG PREVIOUS TRACING : 08/19/2018 23.09 Compared to previous tracing, rate has increased DOCTOR: Keny Rosario Interpretating Date/Time 08/22/2018 01:32:57
[2018-08-22] MEDS: Heparin - SQ 10,000 UNITS/ML Vial SQ SCH ×2 (03:02→10:10)
--- NOTE | 2018-08-22 07:23 | MB ---
cc: Keny Rsoario DO DATE: 08/21/2018 REASON FOR CONSULTATION: Elevated troponin. HISTORY OF PRESENT ILLNESS: Yoshi Lee is a 52-year-old male who presented to [facility] due to altered mental status, brought in by his sister. Apparently, the patient was smoking cocaine the night before. He states that he smoked cocaine with one of his friends and then smoked with another friend and started having visual hallucinations. He was combative, agitated, and screaming. His sister brought him in. During the workup, he was found to have a minimally elevated troponin at 0.09; and because of this, I was asked to see him. In seeing him, he denies chest pain or shortness of breath. PAST MEDICAL HISTORY: 1. Hypertension. 2. Traumatic brain injury. PAST SURGICAL HISTORY: Denies. ALLERGIES: NO KNOWN DRUG ALLERGIES. MEDICATIONS: Denies. FAMILY HISTORY: Denies premature coronary artery disease or sudden cardiac within the family. SOCIAL HISTORY: Smokes cigarettes daily. Uses crack cocaine every other day. Denies alcohol abuse. REVIEW OF SYSTEMS: Fourteen systems were reviewed including osteopathic. Pertinent positives and negatives above, otherwise negative. PHYSICAL EXAMINATION: VITAL SIGNS: Temperature 98.8, heart rate 74, blood pressure 125/66, respirations 20, pulse oximetry 98% on 2 liters. GENERAL: The patient appears well, in no acute distress, alert, awake, and oriented x 3. HEENT: Extraocular muscles intact. Mucous membranes moist. NECK: Supple. No JVD at 45 degrees. No carotid bruits heard bilaterally. Carotid upstroke is brisk in nature. HEART: Regular rate and rhythm. Positive 1st and 2nd heart sounds with no known murmurs, gallops, or rubs. LUNGS: Clear to auscultation bilaterally. No wheezes, rales, or rhonchi. ABDOMEN: Soft, nontender, nondistended. No organomegaly noted. EXTREMITIES: Show no clubbing, cyanosis, or edema. Femoral and distal pulses are intact bilaterally. SKIN: Warm, dry, and intact. NEUROLOGIC: No focal deficits. OSTEOPATHIC: No kyphoscoliosis, lordosis, or paraspinal tender points. DIAGNOSTIC DATA: Hemoglobin 13.9, hematocrit 42.4, platelets 265. Potassium 3.8, BUN 6, creatinine 0.98. Troponin 0.09. Electrocardiogram (08/20/2018 at 0144): Sinus rhythm, left atrial enlargement, ST-T wave changes inferolaterally possibly due to LVH versus ischemia. No significant difference from 2016. IMPRESSION: 1. Crack cocaine abuse every other day. 2. Tobacco abuse. 3. Hypertension. 4. Minimally elevated troponin. 5. Acute kidney injury. 6. Altered mental status. RECOMMENDATIONS: 1. Mr. Lee presented with altered mental status due to crack cocaine abuse. He states that he uses it every other day, but is willing to attempt to stop at this time. 2. He does have a minimally elevated troponin, but this is somewhat nonspecific with his acute kidney injury, it is most likely due to his crack cocaine abuse. 3. I spoke to him for greater than 3 minutes about tobacco cessation. 4. Would not consider ischemic workup at this time as I think that his troponin elevation is due to crack cocaine abuse and overall he is a poor candidate for revascularization. 5. Echocardiogram shows an ejection fraction of 35%-40% and this is most likely due to his crack cocaine abuse. I would not place him on beta arely therapy as the patients who have a history of crack cocaine abuse usually continue to use crack cocaine. 6. He will be started on Norvasc and JESSY inhibitor therapy. 7. No further workup from my standpoint at this time. Thank you for allowing me to see Yoshi Lee. If there are any questions, please do not hesitate to call. DO ANTWAN Heard/daniela , 12:52 AM , 01:03 AM
[2018-08-22 08:27] LABS: Baso % (Auto) 0.4 % (0.0-2.0); Eos % (Auto) 0.7 % (0.0-4.0); Hematocrit 42.2 % (39.0-51.0); Hemoglobin 13.9 gm/dL (13.0-17.0); Lymph # (Auto) 1.9 th/mm3 (1.0-4.8); Lymph % (Auto) 33.5 % (9.0-44.0); Mean Corpuscular Hemoglobin 28.4 pg (27.0-34.0); Mean Corpuscular Volume 86.2 fL (80.0-100.0); Mean Platelet Volume 8.1 fL (7.0-11.0); Mono # (Auto) 0.8 th/mm3 (0.0-0.9); Mono % (Auto) 14.4 % (0.0-8.0); Neut # (Auto) 2.9 th/mm3 (1.8-7.7); Platelet Count 276 th/mm3 (150-450); Red Cell Distribution Width 12.9 % (11.6-17.2); White Blood Count 5.6 th/mm3 (4.0-11.0)
[2018-08-22 08:58] LABS: Albumin 3.4 g/dL (3.4-5.0); Anion Gap 6 meq/L (5-15); Aspartate Aminotransferase 43 U/L (15-37); Blood Urea Nitrogen 9 mg/dL (7-18); Calcium 8.6 mg/dL (8.5-10.1); Carbon Dioxide 27.7 meq/L (21.0-32.0); Chloride 106 meq/L (98-107); Glomerular Filtration Rate 78 mL/min (>89); Glucose,Random 92 mg/dL (74-106); Potassium 4.1 meq/L (3.5-5.1); Sodium 140 meq/L (136-145)
[2018-08-22 09:00] LABS: Alanine Aminotransferase 48 U/L (12-78)
[2018-08-22] MEDS ORDERED: amLODIPine 5 MG Tablet PO SCH (09:00)
[2018-08-22] MEDS ORDERED: Lisinopril 5 MG Tablet PO SCH (09:00)
[2018-08-22] MEDS ORDERED: hydroCHLOROthiazide 25 MG Tablet PO SCH (09:00)
[2018-08-22 09:02] LABS: Alkaline Phosphatase 68 U/L (45-117); Total Protein 7.5 g/dL (6.4-8.2)
--- NOTE | 2018-08-22 12:09 | P.DS ---
Date of admission: 08/20/18 02:55 Primary care physician: UNKNOWN Brief History from admission: 52-year-old male with a past medical history significant for hypertension presents to the emergency department for evaluation of altered mental status as described by his sister. The patient is a poor historian who cannot tell me why he came to the ED. He admits to smoking cocaine this evening. According to ED documentation, his sister brought him to the emergency department after finding him combative, agitated and screaming. He was diaphoretic and not making sense. He was having visual hallucinations on arrival to the ED. He is not on any medications. He currently denies any chest pain or shortness of breath. No abdominal pain. No nausea/vomiting/diarrhea. No fever/chills. No lateralizing signs/symptoms. Per ED documentation, the patient has a history of a TBI. DS: Medications - Discharge Medications Prescriptions: amlodipine [Norvasc] 5 mg PO DAILY #30 tab aspirin 81 mg PO DAILY #30 tab lisinopril 5 mg PO DAILY #30 tab DS: Summary - Time Spent with Patient Total time spent providing and/or coordinating discharge services: - Quality: VTE Deep Vein Thrombosis/Pulmonary Embolism Present on Admission: No Exam Vital signs: Vital Signs 08/21/18 12:42 08/21/18 15:34 08/21/18 20:00 Temperature 98.8 F 98.3 F Pulse Rate 80 74 55 L Respiratory Rate 20 20 Blood Pressure 125/66 134/64 Pulse Oximetry 98 97 08/21/18 21:00 08/22/18 00:00 08/22/18 04:00 Temperature 98.8 F 98.6 F Pulse Rate 60 67 Respiratory Rate 16 20 20 Blood Pressure 143/67 H 128/71 Pulse Oximetry 98 98 08/22/18 08:00 Temperature 98.1 F Pulse Rate 65 Respiratory Rate 20 Blood Pressure 144/73 H Pulse Oximetry 95 Intake & Output 08/21/18 08/22/18 08/22/18 18:59 06:59 18:59 Intake Total 1240 / 1240 Output Total 500 / 500 Balance 740 / 740 Weight 65.5 kg Intake: IV 1000 / 1000 NS Inj 1,000 ML @ 100 mls/hr IV 1000 / 1000 .CONT .Q10H AMIRAH Rx#:[id number] Oral 240 / 240 Output: Urine 500 / 500 Other: # Voids 1 Date of Last Bowel Movement 08/19/18 08/22/18 Results Labs on day of discharge: Labs from last 24 hours 08/22/18 08/22/18 08/21/18 07:04 07:04 09:25 WBC 5.6 RBC 4.90 Hgb 13.9 Hct 42.2 MCV 86.2 MCH 28.4 MCHC 33.0 RDW 12.9 Plt Count 276 MPV 8.1 Neut % (Auto) 51.0 Lymph % (Auto) 33.5 [place] % (Auto) 14.4 H Eos % (Auto) 0.7 Baso % (Auto) 0.4 Neut # (Auto) 2.9 Lymph # (Auto) 1.9 [place] # (Auto) 0.8 Eos # (Auto) 0.0 Baso # (Auto) 0.0 WBC Differential . Differential Comment Auto diff final Sodium 140 Potassium 4.1 Chloride 106 Carbon Dioxide 27.7 Anion Gap 6 BUN 9 Creatinine 1.18 Estimated GFR 78 L Random Glucose 92 Hemoglobin A1c Calcium 8.6 Total Bilirubin 0.4 AST 43 H ALT 48 Alkaline Phosphatase 68 Total Protein 7.5 Albumin 3.4 Triglycerides 69 Cholesterol 146 LDL Cholesterol, Calc 81 HDL Cholesterol 51.1 Cholesterol/HDL Ratio 2.85 08/21/18 09:25 WBC RBC Hgb Hct MCV MCH MCHC RDW Plt Count MPV Neut % (Auto) Lymph % (Auto) [place] % (Auto) Eos % (Auto) Baso % (Auto) Neut # (Auto) Lymph # (Auto) [place] # (Auto) Eos # (Auto) Baso # (Auto) WBC Differential Differential Comment Sodium Potassium Chloride Carbon Dioxide Anion Gap BUN Creatinine Estimated GFR Random Glucose Hemoglobin A1c 5.3 Calcium Total Bilirubin AST ALT Alkaline Phosphatase Total Protein Albumin Triglycerides Cholesterol LDL Cholesterol, Calc HDL Cholesterol Cholesterol/HDL Ratio - Impressions ITS Impressions Chest X-Ray 08/19/18 23:13 CONCLUSION: Possible minimal consolidation or atelectasis at the medial right base. Head CT 08/19/18 23:13 CONCLUSION: Negative noncontrast head CT. . Discharge Plan - Discharge Disposition Patient Disposition: 01 Discharge Home - Discharge Condition Condition: Good - Discharge Order Discharge Orders: Discharge Order (Routine); Ordered 08/22/18 Ordered By: Peter Bermudez - Physicians Team Primary Care Provider: UNKNOWN, Attending Provider: Peter Bermudez Other Providers: Keny Rosario,
[2018-08-22 13:58] VITALS: TEMP 97.2; O2SAT 100
[2018-08-22 14:03] VITALS: BP 145/75; PULSE 63
--- NOTE | 2018-08-22 23:24 | P.PNCA ---
Subjective Interval history: No events overnight No chest pain/SOB Medications and Allergies Allergies Allergy/AdvReac Type Severity Reaction Status Date / Time No Known Allergies AdvReac Unknown Uncoded 01/24/18 10:46 Home Medications Medication Instructions Recorded Confirmed Type Unable to Obtain Home Meds 08/19/18 08/19/18 History Physical Exam Vital signs: Vital Signs 08/22/18 00:00 08/22/18 04:00 08/22/18 08:00 Temperature 98.8 F 98.6 F 98.1 F Pulse Rate 60 67 65 Respiratory Rate 20 20 20 Blood Pressure 143/67 H 128/71 144/73 H Pulse Oximetry 98 98 95 08/22/18 12:00 08/22/18 14:00 Temperature 97.2 F L Pulse Rate 69 63 Respiratory Rate 20 Blood Pressure 189/86 H 145/75 H Pulse Oximetry 100 Intake & Output 08/22/18 08/22/18 08/23/18 06:59 18:59 06:59 Weight 65.5 kg Other: # Voids 1 Date of Last Bowel Movement 08/22/18 08/22/18 Narrative: GENERAL: Well-nourished -[place]arusian male, no acute distress, sitting up in bed. SKIN: Warm and dry. Well-healed abrasion on left lower extremity. HEENT: Normocephalic. No scleral icterus. No injection or drainage. PERRLA, MOM. NECK: Supple, trachea midline. No JVD or lymphadenopathy. CARDIOVASCULAR: Regular rate and rhythm without murmurs, gallops, or rubs. RESPIRATORY: Breath sounds equal bilaterally. No accessory muscle use. GASTROINTESTINAL: Abdomen soft, non-tender, nondistended. MUSCULOSKELETAL: No cyanosis, or edema. BACK: Nontender without obvious deformity. No CVA tenderness. NEURO: AAO x3, no focal deficits, motor strength 5/5 x 4. Results 08/22/18 07:04 08/22/18 07:04 Cardiac Enzymes 08/20/18 08/21/18 08/22/18 Range/Units 22:14 09:25 07:04 AST 35 43 H (15-37) U/L Troponin I 0.05 0.02 (0.02-0.05) ng/mL Lipids 08/21/18 Range/Units 09:25 Triglycerides 69 (42-150) mg/dL Cholesterol 146 (120-200) mg/dL HDL Cholesterol 51.1 (40.0-60.0) mg/dL Cholesterol/HDL Ratio 2.85 Ratio CBC 08/21/18 08/22/18 Range/Units 09:25 07:04 WBC 6.0 5.6 (4.0-11.0) th/mm3 RBC 4.85 4.90 (4.50-5.90) mil/mm3 Hgb 13.9 13.9 (13.0-17.0) gm/dL Hct 42.4 42.2 (39.0-51.0) % Plt Count 265 276 (150-450) th/mm3 Neut # (Auto) 3.7 2.9 (1.8-7.7) th/mm3 Lymph # (Auto) 1.7 1.9 (1.0-4.8) th/mm3 [place] # (Auto) 0.6 0.8 (0.0-0.9) th/mm3 Eos # (Auto) 0.0 0.0 (0.0-0.4) th/mm3 Baso # (Auto) 0.0 0.0 (0.0-0.2) th/mm3 Comprehensive Metabolic Panel 08/21/18 08/22/18 Range/Units 09:25 07:04 Sodium 138 140 (136-145) meq/L Potassium 3.8 4.1 (3.5-5.1) meq/L Chloride 106 106 (98-107) meq/L Carbon Dioxide 24.4 D 27.7 (21.0-32.0) meq/L BUN 6 L 9 (7-18) mg/dL Creatinine 0.98 1.18 (0.60-1.30) mg/dL Calcium 8.1 L 8.6 (8.5-10.1) mg/dL AST 35 43 H (15-37) U/L ALT 38 48 (12-78) U/L Alkaline Phosphatase 66 68 (45-117) U/L Total Protein 7.2 D 7.5 (6.4-8.2) g/dL Albumin 3.3 L D 3.4 (3.4-5.0) g/dL Intake and Output 08/22/18 08/22/18 08/23/18 14:59 22:59 06:59 Other: Date of Last Bowel Movement 08/22/18 Assessment and Plan - Assessment (1) [place] (acute kidney injury) Code(s): N17.9 - Acute kidney failure, unspecified Status: Acute (2) Elevated troponin Code(s): R74.8 - Abnormal levels of other serum enzymes Status: Acute (3) Cocaine abuse Code(s): F14.10 - Cocaine abuse, uncomplicated Status: Chronic (4) HTN (hypertension) Code(s): I10 - Essential (primary) hypertension Status: Chronic - Plan 1) Altered mental status Due to crack cocaine abuse 2) Crack cocaine abuse Using every other day Attempting to quit 3) Minimally elevated troponin No signs of ACS Non-specific with LONDON 4) L[place] Resolved 5) HTN Started on Norvasc/Lisinopril 6) Cardiomyopathy EF 35-40% No plan for beta arely therapy due to crack cocaine use Started on Lisinopril Most likely secondary to crack cocaine use 7) Cardiovascularly stable for discharge
== END 2018-08-22 15:37 | disposition home or self-care (01) ==
LOC: NEDA 22:51 → NEPE 22:51 → OBSVTOIN 08-20 03:11 → N05 08-20 04:41
PROVIDERS: ADMIT Family Medicine; ATTEND Family Medicine